=== PATIENT | female | born 1990 | race Caucasian/White ===

== ENCOUNTER 2023-04-29 11:38 | Outpatient (OUT) | payer MEDICAID, SELFPAY | END 2023-04-29 11:39 | disposition home or self-care (01) | LOC: LAB 11:40 | PROVIDERS: PCP Family Medicine; Visit Provider Internal Medicine | DX: B19.20 Unspecified viral hepatitis C without hepatic coma (principal) | CPT/HCPCS: 36415; 87522 ==

== ENCOUNTER 2023-04-29 11:42 | Outpatient (OUT) | payer MEDICAID, SELFPAY ==
[2023-04-29 12:51] LABS: Thyroid Stimulating Hormone 1.777 uIU/mL (0.358-3.740)
== END 2023-04-29 11:43 | disposition home or self-care (01) ==
PROVIDERS: PCP Family Medicine; Visit Provider Nurse Practitioner Family
DX: B19.20 Unspecified viral hepatitis C without hepatic coma (principal); E03.9 Hypothyroidism, unspecified
CPT/HCPCS: 36415; 84443; 87522